=== PATIENT | female | born 1995 | race Caucasian/White ===

== ENCOUNTER 2018-08-30 09:23 | Emergency (ER) | payer BC ==
--- NOTE | 2018-08-30 10:29 | UC ---
Upper Extremity HPI - HPI Summary HPI Summary: Per desolderer: "FELL LAST NIGHT ON LEFT SIDE AND INJURED LEFT HAND. MULTIPLE SMALL OPEN AREAS COVERED WITH BANDAGES PT STATES SHE CLEANED THEM WELL AND PUT NEOSPORIN ON OPEN AREAS, AND SWOLLEN PAINFUL LEFT PINKY FINGER, UNABLE TO BEND FINGER" -she is here w/ her friend. -hard to bend her finger. + bruising. sensation intact. no bleeding -LMP ~ 08/09. takes OCP and is compliant with it. denies - History of Current Complaint Stated Complaint: LEFT PINKY INJURY Time Seen by Provider: 08/30/18 10:26 - Allergies/Home Medications Allergies/Adverse Reactions: Allergies Allergy/AdvReac Type Severity Reaction Status Date / Time amoxicillin [From Augmentin] Allergy Unknown Verified 08/30/18 10:26 Reaction Details clavulanic acid Allergy Unknown Verified 08/30/18 10:26 [From Augmentin] Reaction Details Home Medications: Home Medications Ibuprofen [Advil] 400 mg PO Q8H 08/30/18 [History Confirmed 08/30/18] Norgestimate-Ethinyl Estradiol [Ortho-Cyclen 28 Tablet] 1 each PO DAILY [History Confirmed 08/30/18] PMH/Surg Hx/FS Hx/Imm Hx Previously Healthy: Yes Review of Systems Constitutional: Negative Skin: Negative Eyes: Negative ENT: Negative Respiratory: Negative Cardiovascular: Negative Gastrointestinal: Negative Genitourinary: Negative Motor: Negative Neurovascular: Negative Musculoskeletal: Other: - left 5th digit Neurological: Negative Psychological: Negative Is Patient Immunocompromised?: No All Other Systems Reviewed And Are Negative: Yes Physical Exam Triage Information Reviewed: Yes Appearance: Well-Appearing Vital Signs Reviewed: Yes Eye Exam: Normal Respiratory Exam: Normal Respiratory: Positive: Lungs clear Cardiovascular Exam: Normal Cardiovascular: Positive: RRR Musculoskeletal: Positive: Other: - left index finger w/ bruising on flexor surface > extensor surfaces. CR brisk. sensation itact. mild swelling. Neurological Exam: Normal Psychological Exam: Normal Skin Exam: Normal Upper Extremity Course/Dx - Course Course Of Treatment: left 5th digir xray: "IMPRESSION: FRACTURE OF THE BASE OF THE PROXIMAL PHALANX OF THE FIFTH DIGIT". -finger splint, ice, rest, nsaids. f/ u with ortho Saturday. 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 - Differential Dx/Diagnosis Differential Diagnosis/HQI/PQRI: Fracture (Closed), Strain, Sprain Provider Diagnoses: left 5th digit proximal phalynx transverse fracture. Discharge - Sign-Out/Discharge Documenting (check all that apply): Patient Departure All imaging exams completed and their final reports reviewed: Yes - Discharge Plan Condition: Stable Disposition: HOME Patient Education Materials: Finger Fracture (ED) Referrals: No Primary Care Phys,NOPCP [Primary Care Provider] - Devon Casey MD [Medical Doctor] - 2 Days Additional Instructions: -We printed a copy of the xray report for you and have splinted your finger. You can take ibuprofen 800mgs every 8 hrs as needed for pain. Ice will be helpful for swelling, 20 mins on/20 mins off with a towel barrier. - Billing Disposition and Condition Condition: STABLE Disposition: Home
--- NOTE | 2018-08-30 10:56 | RAD ---
HISTORY: fall. bruising, swelling proximal 5th left digit COMPARISONS: None VIEWS: 3 , Frontal, lateral, and oblique views of the fifth digit of left hand FINDINGS: BONE DENSITY: Normal. BONES: There is a slightly lobulated transverse fracture of the base of the proximal phalanx of the fifth digit. JOINTS: There is no arthropathy. ALIGNMENT: There is no dislocation. SOFT TISSUES: Unremarkable. OTHER FINDINGS: None. IMPRESSION: FRACTURE OF THE BASE OF THE PROXIMAL PHALANX OF THE FIFTH DIGIT
== END 2018-08-30 11:30 | disposition home or self-care (01) ==
LOC: UCCORT 09:23
DX: S62.617A Displaced fracture of proximal phalanx of left little finger, initial encounter for closed fracture (principal); W19.XXXA Unspecified fall, initial encounter; Y93.9 Activity, unspecified; Y92.9 Unspecified place or not applicable; Z88.1 Allergy status to other antibiotic agents; Z88.8 Allergy status to other drugs, medicaments and biological substances
CPT/HCPCS: 26720; 73140; 99201; G0463

== ENCOUNTER 2019-03-07 11:40 | Emergency (ER) | payer BC ==
[2019-03-07] MEDS ORDERED: Fluorescein Sodium TOPICAL* 1 MG TEST STRIP ONE (13:18)
[2019-03-07 13:20] VITALS: BP 123/68
[2019-03-07] MEDS ORDERED: Fluorescein Sodium TOPICAL* 1 MG TEST STRIP OPHTHALMIC ONE (13:21)
--- NOTE | 2019-03-07 13:28 | UC ---
Eye Complaint HPI - HPI Summary HPI Summary: Woke up this morning and feels like something is in right eye. Photophobia. Doesn't wear contacts. Denies drainage. Denies trauma to the eye. - History of Current Complaint Chief Complaint: UCEye Stated Complaint: RIGHT EYE CONCERN Time Seen by Provider: 03/07/19 13:13 Hx Obtained From: Patient Hx Last Menstrual Period: 03/2019 ?: No Onset/Duration: Sudden Onset, Lasting Days Timing: Constant Severity Initially: Mild Severity Currently: Mild Pain Intensity: 2 Location of Injury: Sclera Character: Foreign Body Sensation Aggravating Factor(s): Light, Blinking Associated Signs And Symptoms: Positive: Drainage (Purulent) - Allergies/Home Medications Allergies/Adverse Reactions: Allergies Allergy/AdvReac Type Severity Reaction Status Date / Time amoxicillin [From Augmentin] Allergy Unknown Verified 03/07/19 13:13 Reaction Details clavulanic acid Allergy Unknown Verified 03/07/19 13:13 [From Augmentin] Reaction Details PMH/Surg Hx/FS Hx/Imm Hx Previously Healthy: Yes - Surgical History Surgical History: None - Family History Known Family History: Positive: Hypertension - Social History Alcohol Use: Occasionally Substance Use Type: None Smoking Status (MU): Never Smoked Tobacco Review of Systems All Other Systems Reviewed And Are Negative: Yes Constitutional: Positive: Negative Skin: Positive: Negative Eyes: Positive: Eye Redness ENT: Positive: Negative Respiratory: Positive: Negative Cardiovascular: Positive: Negative Gastrointestinal: Positive: Negative Genitourinary: Positive: Negative Motor: Positive: Negative Neurovascular: Positive: Negative Musculoskeletal: Positive: Negative Neurological: Positive: Negative Psychological: Positive: Negative Is Patient Immunocompromised?: No Physical Exam Triage Information Reviewed: Yes Appearance: Well-Appearing, Well-Nourished, Pain Distress Vital Signs: Initial Vital Signs Temp 98.6 F 03/07/19 13:13 Pulse 70 03/07/19 13:13 Resp 14 03/07/19 13:13 BP 123/68 03/07/19 13:13 Pulse Ox 99 03/07/19 13:13 Vital Signs Reviewed: Yes Eye Exam: Normal Eyes: Positive: Conjunctiva Inflamed, Other: - ful harper exam shows multiple small areaas of uptake conisitant with mild abraisons ENT Exam: Normal Dental Exam: Normal Neck exam: Normal Respiratory Exam: Normal Respiratory: Positive: Chest non-tender, Lungs clear, Normal breath sounds Cardiovascular Exam: Normal Abdominal Exam: Normal Bowel Sounds: Positive: Present Musculoskeletal Exam: Normal Neurological Exam: Normal Psychological Exam: Normal Skin Exam: Normal Eye Complaint Course/Dx - Course Course Of Treatment: hx obtained, exam performed, meds reviewed, ful glow exam performed, abrasions noted - Differential Dx/Diagnosis Differential Diagnosis/HQI/PQRI: Conjunctivitis, Corneal Abrasion, Keratitis Provider Diagnosis: Corneal abrasion Discharge - Sign-Out/Discharge Documenting (check all that apply): Patient Departure All imaging exams completed and their final reports reviewed: No Studies - Discharge Plan Condition: Stable Disposition: HOME Prescriptions: Erythromycin OPHTH.OINT* [Ilotycin OPHTH.OINT*] 1 applic RIGHT EYE TID #1 tube Patient Education Materials: Corneal Abrasion (ED) Referrals: No Primary Care Phys,NOPCP [Primary Care Provider] - Additional Instructions: 1. use the cream three times a day for 3-5 days 2. follow up as needed. - Billing Disposition and Condition Condition: STABLE Disposition: Home - Attestation Statements Provider Attestation: I was available for consult. This patient was seen by the DENNY. The patient was not presented to, seen by, or examined by me. EK
== END 2019-03-07 13:37 | disposition home or self-care (01) ==
LOC: UCCORT 11:40
DX: S05.01XA Injury of conjunctiva and corneal abrasion without foreign body, right eye, initial encounter (principal); Z88.0 Allergy status to penicillin; X58.XXXA Exposure to other specified factors, initial encounter; Y92.9 Unspecified place or not applicable
CPT/HCPCS: 99212; A9270-GY; G0463